=== PATIENT | male | born 1970 | race Caucasian/White ===

== ENCOUNTER 2018-12-16 10:11 | Emergency (ER) | payer MEDICARE, OTHER ==
[~2018-12-16] VITALS: Ht 170.2 cm; Wt 74.8 kg
--- OUTSIDE RECORDS SUMMARY | 2018-12-16 10:14 | XMS REPORT | Clinical Summary ---
Author Author JENIFER YmagisPower County HospitalHyperopticLevi HospitalNeuroInterventional TherapeuticsProvidence [facility] Address Unknown Phone Unavailable Care Team Providers Care Custom Motorcycle Painter Name Role Phone Sharpless PCP Hugo Rivera MD Unavailable Allergies Comments Active Allergy Reactions Severity Noted Date Codeine Nausea And 12/05/2015 Vomiting IV contrast Other Itching 12/05/2015 Medications End Date Status Medication Sig Dispensed Refills Start Date Active ascorbic acid (VITAMIN C) Take 1,000 mg 0 1000 MG tablet by mouth daily. Active calcium acetate (PHOSLO) Take 667 mg 0 667 mg capsule by mouth 3 (three) times daily with meals. Active dorzolamide-timolol 1 drop 2 0 (COSOPT) 22.3-6.8 mg/mL (two) times ophthalmic solution daily. Active epoetin flavia Inject 10,000 0 (EPOGEN,PROCRIT) 10,000 Units unit/mL injection subcutaneousl y 3 (three) times a week at bedtime MWF. Active quiNINE sulfate 324 mg Take 648 mg 0 Cap capsule by mouth 3 (three) times a week MWF. Active temazepam (RESTORIL) 22.5 Take 30 mg by 0 MG capsule mouth every night as needed for Sleep . Active travoprost (TRAVATAN Z) Place 1 drop 0 0.004 % Drop ophthalmic into both drops eyes nightly. Active omega-3 fatty Take by 0 acids-vitamin E 1,000 mg mouth. Cap Active Problems Problem Noted Date Cataract, left 04/30/2016 Chronic kidney disease (CKD), dialysis modality undecided, unspecified 04/30/2016 stage Diet-controlled diabetes mellitus 04/30/2016 Primary open angle glaucoma of both eyes, severe stage 12/06/2015 Encounters Care Team Description Date Type Specialty Montrell Deshpande MD 12/24/2017 Anesthesia Event Drew Conley MD INSERTION,EYE TUBE SHUNT W/WO GRAFT 12/24/2017 Surgery Drew Conley MD Primary open angle glaucoma of both eyes, severe stage (Primary Dx) 12/24/2017 Hospital Encounter Drew Conley MD 12/23/2017 Hospital Pre-Admission Testing Encounter after 12/15/2017 Social History Date Tobacco Use Types Packs/Day Years Used Never Smoker Smokeless Tobacco: Never Used Alcohol Use Drinks/Week oz/Week Comments No Sex Assigned at Date Recorded Not on file Industry Job Start Date Occupation Not on file Not on file Not on file Travel End Travel History Travel Start No recent travel history available. Last Filed Vital Signs Time Taken Vital Sign Reading 12/24/2017 2:43 PM JAVA PROGRAMMER Blood Pressure 84/47 12/24/2017 2:43 PM JAVA PROGRAMMER Pulse 67 12/24/2017 2:20 PM JAVA PROGRAMMER Temperature 36.7 C (98 F) 12/24/2017 2:43 PM JAVA PROGRAMMER Respiratory Rate 13 12/24/2017 2:31 PM JAVA PROGRAMMER Oxygen Saturation 95% - Inhaled Oxygen - Concentration 12/24/2017 1:12 PM JAVA PROGRAMMER Weight 77.1 kg (169 lb 15.6 oz) 12/24/2017 1:12 PM JAVA PROGRAMMER Height 170.2 cm (5' 7") 12/24/2017 1:12 PM JAVA PROGRAMMER Body Mass Index 26.62 Plan of Treatment Not on file Implants Device Identifier Shelf Expiration Date Model / Serial / Lot Implanted Type Area Manufactur er 07/26/2017 [id number] / [id number] / Brvldt Glucma Implnt 350mm [id number] IMPLANTS Right: Eye ADV MED - [id number] OPTICS Implanted: Qty: 1 on 12/06/2015 by Drew Conley MD 12/17/2019 SN60WF.225 / [id number] / Iol Acrysof Luz 6.0 13 22.5d Ophthalmol Left: Eye PAM Sn60wf.225 - [id number] ogy LAB:SURG Implanted: Qty: 1 on 04/30/2016 by Sana Shirley MD 05/18/2021 SN60WF.225 / [id number] / Iol Acrysof Luz 6.0 13 22.5d Ophthalmol Right: Eye PAM Sn60wf.225 - [id number] ogy LAB:SURG Implanted: Qty: 1 on 09/24/2016 by Sana Shirley MD 08/14/2019 [id number] / [id number] / Imp Glaucoma Baerveldt [id number] - Ophthalmol Left: Eye [employer] [id number] ogy & SERVICES Implanted: Qty: 1 on 12/24/2017 by Drew Webster MD 09/23/2019 HCO-HH1 / [id number] / Halo Cornea Half Half Strl Hco-Hh1 Tissue Left: Eye LIONS - [id number] Graft/Subs VISIONGIFT Implanted: Qty: 1 on 12/24/2017 by Drew Saldana MD 08/29/2016 / [id number] / Cornea Half Halo Half Thickness Right: Eye LIONS Graft VISIONGIFT Implanted: Qty: 1 on 12/06/2015 by Drew Conley MD Procedures Comments Procedure Name Priority Date/Time Associated Diagnosis INSERTION,EYE TUBE SHUNT 12/24/2017 H40.10X3- UNSPECIFIED W/WO GRAFT 1:35 PM JAVA PROGRAMMER OPEN ANGLE GLAUCOMA, SEVERE STAGE POCT-HEMOGLOBIN Routine 12/24/2017 1:35 PM JAVA PROGRAMMER POCT-HEMATOCRIT Routine 12/24/2017 1:35 PM JAVA PROGRAMMER POCT-GLUCOSE Routine 12/24/2017 1:35 PM JAVA PROGRAMMER POCT-CHLORIDE Routine 12/24/2017 1:35 PM JAVA PROGRAMMER POCT-BUN Routine 12/24/2017 1:35 PM JAVA PROGRAMMER POCT-POTASSIUM Routine 12/24/2017 1:35 PM JAVA PROGRAMMER POCT-SODIUM Routine 12/24/2017 1:35 PM JAVA PROGRAMMER after 12/15/2017 Results * POC-Chloride (12/24/2017 1:35 PM JAVA PROGRAMMER) [facility]-Chloride 98Comment: TESTED AT [facility] 98 - 107 meq/L [place] [id number] [place] [address] Specimen Blood Performing Organization Address City/[facility]/Zipcode Phone Number [phone] [place] [address] * POC-BUN (12/24/2017 1:35 PM JAVA PROGRAMMER) POC-BUN 51 (H)Comment: TESTED AT 7 - 21 mg/dL [address] [address] Specimen Blood Performing Organization Address City/[facility] Phone Number [address] * POCT-HEMATOCRIT (12/24/2017 1:35 PM JAVA PROGRAMMER) POC-Hematocrit 36 (L)Comment: TESTED AT 40 - 50 % [address] [address] Specimen Blood Performing Organization Address City/[facility] Cent[facility] Phone Number [phone] [place] [address] * POCT-HEMOGLOBIN (12/24/2017 1:35 PM JAVA PROGRAMMER) POC-Hemoglobin 12.2 (L)Comment: TESTED AT 13.0 - 16.8 g/dL [place] [id number] [facility] [address] Specimen Blood Performing Organization Address City/[facility] Centercode Phone Number [phone] [place] [address] * POCT-GLUCOSE (12/24/2017 1:35 PM JAVA PROGRAMMER) POC-Glucose 79Comment: TESTED AT [facility] 70 - 110 mg/dL [address] [place] [address] Specimen Blood Performing Organization Address City/[facility]/Zipcode Phone Number [address] * POC-Sodium (12/24/2017 1:35 PM JAVA PROGRAMMER) POC-Sodium 140Comment: TESTED AT 135 - 148 meq/L [facility] [address] [facility] [address] Specimen Blood Performing Organization Address City/State/[facility] Centercode Phone Number [facility] [address] [place] [address] [phone] [place] [address] * POC-Potassium (12/24/2017 1:35 PM JAVA PROGRAMMER) POC-Potassium 5.2Comment: TESTED AT 3.6 - 5.5 meq/L [facility] [address] [facility] [address] Specimen Blood Performing Organization Address City/[facility] Centercode Phone Number [facility] [address] [place] [address] [phone] [place] [address] after 12/15/2017 Insurance Payer Benefit Subscriber ID Type Phone Address Plan / Group MEDICARE MEDICARE A xxxxxxxxxx Medicare B MEDICARE MEDICARE A xxxxxxxxxx Medicare B AETNA - MGD CARE AETNA HMO xxxxxxxxxx HMO/POS POS QPOS AETNA - [place]GD CARE AETNA HMO xxxxxxxxxx HMO/POS POS QPOS
--- OUTSIDE RECORDS SUMMARY | 2018-12-16 10:14 | XMS REPORT ---
Author Author [facility] Address Unknown Phone Unavailable Care Team Providers Care Auto Bench Mechanic Name Role Phone Terri GONZALEZ Unavailable Unavailable Problems This patient has no known problems. Allergies, Adverse Reactions, Alerts This patient has no known allergies or adverse reactions. Medications This patient has no known medications. Results Test Description Test Time Test Comments Text Results Atomic Results Result Comments POCT-SODIUM 2017-12-24 13:41:00 POC-SODIUM (BEAKER) (test enfj=0912) 140 meq/L 135-148 TESTED AT [place] [address] [id number] 13:41:00* Test Item Value Reference Range Comments POC-POTASSIUM (BEAKER) (test evbl=9576) 5.2 meq/L 3.6-5.5 TESTED AT [place] [address] [id number] 13:41:00* Test Item Value Reference Range Comments POC-BUN (BEAKER) (test xplq=0951) 51 mg/dL 7-21 TESTED AT [place] [address] [id number] 13:41:00* Test Item Value Reference Range Comments POC-CHLORIDE (BEAKER) (test jurg=8382) 98 meq/L 98-107 TESTED AT [place] [id number] [id number] 13:41:00* Test Item Value Reference Range Comments POC-GLUCOSE (BEAKER) (test qxrq=9771) 79 mg/dL 70-110 TESTED AT [place] [address] [id number] 13:41:00* Test Item Value Reference Range Comments POC-HEMATOCRIT (BEAKER) (test jbpy=8311) 36 % 40-50 TESTED AT [place] [id number] 13:41:00* Test Item Value Reference Range Comments POC-HEMOGLOBIN ([place]) (test gltn=0456) 12.2 g/dL 13.0-16.8 TESTED AT [facility]- [address] [address]
--- OUTSIDE RECORDS SUMMARY | 2018-12-16 10:14 | XMS REPORT ---
Author Melo Fairchild [facility] eClinicalWorks Address Unknown Phone Unavailable Care Team Providers Care Director Of Human Resources Name Role Phone Melo Santo CP Unavailable Allergies No Known Allergies Problems Problem Type Condition Code Onset Dates Condition Status Problem End stage renal disease N18.6 Active Medications No Known Medications Results No Known Results Summary Purpose eClinicalWorks Submission
--- OUTSIDE RECORDS SUMMARY | 2018-12-16 10:14 | XMS REPORT | Continuity of Care Document ---
Author Author Libia caceres Organization Interface Address Unknown Phone Unavailable Problems Problem Status Onset Date Classification Date Reported Comments Source LEFT FOOT PAIN Active 11/21/2017 [facility] End stage renal disease Active Problem 01/23/2017 [facility] Medications Medication Details Route Status Patient Instructions Ordering Provider Order Date Source Allergies, Adverse Reactions, Alerts Substance Category Reaction Severity Reaction type Status Date Reported Comments Source Immunizations Immunization Date Given Site Status Last Updated Comments Source Results Order Name Results Value Reference Range Date Interpretation Comments Source Foot 2 views DX Foot 2 views DX Clinical Indication: - tripped. c/o top of foot pain. Comparison: None. FINDINGS: AP and lateralviews of the left foot show normal alignment without fractures or dislocations. The joints appear unremarkable. There is no soft tissue swelling or radiopaque foreign bodies. There is no soft tissue gas or osseous erosive changes noted. The bones appear demineralized particularly the MTP joints and phalanges. Vascular calcifications are noted. IMPRESSION: 1. Suspect demineralization. 2. No acute fracture or dislocation of the left foot. AMELIA: TJANDREA 11/21/2017 - - Read by: Zhanna Elise MD Dictated Date/time: 11/21/17 10:58 Electronically Signed by: Zhanna Elise MD 11/21/17 11:[address] [facility] Vital Signs Vital Sign Value Date Comments Source Encounters Location Location Details Encounter Type Encounter Number Reason For Visit Attending Provider ADM Date DC Date Status Source Procedures Procedure Code Date Perfomer Comments Source
--- OUTSIDE RECORDS SUMMARY | 2018-12-16 10:14 | XMS REPORT | Clinical Summary ---
Author Author [facility] Organization [facility] Address Unknown Phone Unavailable Care Team Providers Care Tape Keller Operator Name Role Phone Hugo Rivera MD PCP Allergies Comments Active Allergy Reactions Severity Noted Date Codeine 09/28/2015 IV contrast Other Itching 12/05/2015 Medications End Date Status Medication Sig Dispensed Refills Start Date Active temazepam (RESTORIL) 30 TAKE 2-3 1 mg capsule CAPSULES BY 8 MOUTH AT BEDTIME Active dorzolamide-timolol INSTILL 1 6 (COSOPT) 22.3-6.8 mg/mL DROP INTO 8 ophthalmic solution BOTH EYES TWICE A DAY Active prednisoLONE acetate PLACE 1 DROP 2 (PRED FORTE) 1 % INTO THE LEFT 8 ophthalmic suspension EYE FOUR TIMES DAILY. SHAKE WELL BEFORE EACH USE Active gatifloxacin (ZYMAXID) PLACE 1 DROP 0 0.5 % drops INTO THE LEFT 8 EYE 3 TIMES DAILY. Active quiNINE (QUALAQUIN) 324 Take by 0 MG capsule mouth. Active epoetin flavia Infuse 10,000 0 (EPOGEN,PROCRIT) 10,000 Units into a unit/mL injection venous catheter. Active calcium acetate (PHOSLO) Take 1 tablet 0 667 mg tablet by mouth. Active ascorbic acid, vitamin C, Take by 0 (VITAMIN C) 1000 MG mouth. tablet Active aspirin (ECOTRIN) 81 MG Take 81 mg by 0 enteric coated tablet mouth daily. Active cyanocobalamin (VITAMIN Take 500 mcg 0 B-12) 500 MCG tablet by mouth daily. Active acetaminophen (TYLENOL) Take 325 mg 0 325 MG tablet by mouth every 6 (six) hours as needed for fever. Active latanoprost (XALATAN) 1 drop 0 0.005 % ophthalmic nightly. solution Active cycloSPORINE (RESTASIS) 1 drop 2 0 0.05 % ophthalmic (two) times a emulsion day. Active omega-3/dha/epa/fish oil Take 1,200 mg 0 (FISH OIL HIGH POTENCY by mouth. ORAL) 04/27/2018 traMADol (ULTRAM) 50 mg Take 1 tablet 40 tablet 0 tablet (50 mg total) 8 by mouth every 6 (six) hours as needed for moderate pain for up to 25 days. Active Problems Problem Noted Date Other complication due to venous access device 02/25/2018 Overview: Added automatically from request for surgery [id number] Glaucoma 02/01/2018 ESRD (end stage renal disease) , transplant [id number], MWF 02/01/2018 Last Assessment & Plan: N. Duplex reviewed by me suggests a volume flow of 1.3 L/min with some venous stenosis. Plan for RLE graft revision with 23 hour hospital observation in 03/2018. We discussed operative complications including bleeding, thrombosis, failure of the access, swelling, steal syndrome, and need for additional procedures. Plan to begin enteric coated ASA QD. Peptic ulcer disease 02/01/2018 Encounters Care Team Description Date Type Specialty Damien Andrade, EMIL ESRD (end stage renal disease) , transplant , MW (Primary Dx) 04/27/2018 Office Visit Cardiovascular Hugo Rivera MD 04/02/2018 Documentation Nephrology Tanja Garvin MD 04/01/2018 Anesthesia Vascular Surgery Event Yvette Roberto MD REVISION OF RIGHT LEG AV GRAFT acuseal 04/01/2018 Surgery Vascular Surgery Yvette Roberto MD Other complication due to venous access device, initial encounter 04/01/2018 [facility] General Internal Medicine - Encounter 04/02/2018 Yvette Roberto MD ESRD (end stage renal disease) 04/01/2018 Hospital Radiology Encounter Yvette Roberto MD ESRD (end stage renal disease) 04/01/2018 Hospital Radiology Encounter Yusra Jesus 02/25/2018 Telephone Cardiovascular Yusra Jesus Other complication due to venous access device, initial encounter (Primary Dx) 02/22/2018 Prep for Cardiovascular Surgery Yvette Roberto MD ESRD (end stage renal disease) , transplant 1992, MW (Primary Dx) 02/01/2018 Office Visit Cardiovascular Yvette Roberto MD End stage renal disease (Primary Dx) 12/28/2017 Orders Only Cardiovascular after 12/15/2017 Social History Date Tobacco Use [...] Vital Signs Time Taken Vital Sign Reading 04/27/2018 10:09 AM CDT Blood Pressure 97/54 04/27/2018 10:09 AM CDT Pulse 77 04/27/2018 10:09 AM CDT Temperature 37.1 C (98.8 F) 04/27/2018 10:09 AM CDT Respiratory Rate 17 04/02/2018 12:33 PM CDT Oxygen Saturation 99% - Inhaled Oxygen - Concentration 04/27/2018 10:09 AM CDT Weight 77.1 kg (170 lb) 04/27/2018 10:09 AM CDT Height 170.2 cm (5' 7") 04/27/2018 10:09 AM CDT Body Mass Index 26.63 Plan of Treatment Health Maintenance Due Date Last Done Comments INFLUENZA VACCINE 05/19/2018 Implants Device Identifier Shelf Expiration Date Model / Serial / Lot Implanted Type Area Manufactur er 02/17/2021 [id number] / [id number] / [id number] 6mm X 50 Cm Flixene Graft W/Gds - IPM GRAFTS Right: Thigh [employer] [id number] MEDICAL Implanted: 04/01/2018 (Quantity not NELSON on file) 06/28/2022 [id number] / / [id number] Clip Ligtng Weck Hemoclip Plus W/ Medical Right: Thigh WECK Tape Ti Sm - [id number] Clips for CLOSURE Implanted: Qty: 1 on 04/01/2018 by Internal SYSTEMS Yvette Roberto MD Use 10/26/2022 [id number] / / [id number] Clip Ligtng Weck Hemoclip Plus W/ Medical N/A: N/A TELEFLEX Tape Ti Lg - [id number] Clips for MEDICAL Implanted: Qty: 1 on 04/01/2018 by Internal Yvette Roberto MD Use [id number] / / Catheter Thrmbtmy Brionna 5fr 50cm Surgical N/A: N/A [facility] - [id number] Implants; LIFESCIENC Implanted: 04/01/2018 (Quantity not Expanders; ES on file) Extenders; Surgical Wires Procedures Comments Procedure Name Priority Date/Time Associated Diagnosis ZZESTIMATED GFR Routine 04/02/2018 8:31 AM CDT HEPATITIS B SURFACE Routine 04/02/2018 ANTIGEN 8:31 AM CDT BASIC METABOLIC PANEL Routine 04/02/2018 8:31 AM CDT HC COMPLETE BLD COUNT Routine 04/02/2018 W/AUTO DIFF 8:31 AM CDT HEMODIALYSIS Routine 04/02/2018 8:30 AM CDT OR [place] > 1 HOUR Routine 04/01/2018 ESRD (end stage renal 3:40 PM CDT disease) [place] AN ELECTIVE Routine 04/01/2018 SUPRAGLOTTIC AIRWAY 1:18 PM CDT Procedure Note - Glen Juárez CRNA - 04/01/2018 1:18 PM CDT Airway Performed by: GLEN JUÁREZ Authorized by: CARLY LOWE Location: OR Urgency: Elective Difficult Airway: No Anesthesio logist: CARLY LOWE Resident/C RNA/AA: GLEN JUÁREZ Performed by: resident/C RNA/AA Preoxygena rebecca with 100% O2: Yes C-spine Precaution s Maintained Throughout : Yes Mask Ventilatio n: Easy mask Final Airway Type: Supraglott ic airway Final LMA: Classic LMA Size: 5 Number of Attempts at Approach: 1 REVISION, ARTERIOVENOUS 04/01/2018 Other complication due to GRAFT, WITH ANGIOGRAPHY 12:35 PM CDT venous access device, initial encounter Case Notes POSSIBLE EXTENDED RECOVERY NEEDED Special Needs POSSIBLE EXTENDED RECOVERY NEEDED XR CHEST 1 VW PORTABLE STAT 04/01/2018 ESRD (end stage renal 10:50 AM CDT disease) ECG 12-LEAD Routine 04/01/2018 10:49 AM CDT GLUCOSE LEVEL, SYRINGE STAT 04/01/2018 10:45 AM CDT SODIUM LEVEL, SYRINGE STAT 04/01/2018 10:45 AM CDT POTASSIUM, SYRINGE STAT 04/01/2018 10:45 AM CDT HEMOGLOBIN, SYRINGE STAT 04/01/2018 10:45 AM CDT US DUPLEX HEMODIALYSIS Routine 02/01/2018 End stage renal disease AVG AVF ACCESS 11:05 AM CDT after 12/15/2017 Results * Estimated GFR (04/02/2018 8:31 AM CDT) GFR Non Af Amer 7 (A) mL/min/1.73 m2 [facility] DEPARTMENT OF PATHOLOGY AND GENOMIC MEDICINE GFR Af Amer 8 (A) mL/min/1.73 m2 [facility] DEPARTMENT OF Comment: PATHOLOGY AND Chronic kidney disease: <60 GENOMIC MEDICINE mL/min/1.73m2 Kidney failure: <15 mL/min/1.73m2 The estimated GFR is calculated from the IDMS-traceable Modification of Diet in Renal Disease Equation. The accuracy of the calculation is poor when the creatinine is normal. Calculated values >90 mL/min/1.73m2 are not reported. This equation has not been validated in children (<18 years), women, the elderly (>70 years), or ethnic groups other than Caucasians and Americans. Specimen Plasma specimen Performing Organization Address City/State/[place] [address] PATHOLOGY AND [employer] * Hepatitis B surface antigen (04/02/2018 8:31 AM CDT) Hepatitis B surface Ag Non-reactive Non-reactive [facility] DEPARTMENT OF PATHOLOGY AND GENOMIC MEDICINE Specimen Blood Performing Organization Address City/State/[place] [address] PATHOLOGY AND [facility]IC[facility] * CBC with platelet and differential (04/02/2018 8:31 AM CDT) WBC 7.77 4.50 - 11.00 k/uL [facility] DEPARTMENT OF PATHOLOGY AND GENOMIC MEDICINE RBC 3.09 (L) 4.40 - 6.00 m/uL [facility] DEPARTMENT OF PATHOLOGY AND GENOMIC MEDICINE HGB 9.4 (L) 14.0 - 18.0 g/dL [facility] DEPARTMENT OF PATHOLOGY AND GENOMIC MEDICINE HCT 30.0 (L) 41.0 - 51.0 % [facility] DEPARTMENT OF PATHOLOGY AND GENOMIC MEDICINE MCV 97.1 82.0 - 100.0 fL [facility] DEPARTMENT OF PATHOLOGY AND GENOMIC MEDICINE MCH 30.4 27.0 - 34.0 pg [facility] DEPARTMENT OF PATHOLOGY AND GENOMIC MEDICINE MCHC 31.3 31.0 - 37.0 g/dL [facility] DEPARTMENT OF PATHOLOGY AND GENOMIC MEDICINE RDW - SD 48.3 37.0 - 55.0 fL [facility] DEPARTMENT OF PATHOLOGY AND GENOMIC MEDICINE MPV 9.6 8.8 - 13.2 fL [facility] DEPARTMENT OF PATHOLOGY AND GENOMIC MEDICINE Platelet count 249 150 - 400 k/uL [facility] DEPARTMENT OF PATHOLOGY AND GENOMIC MEDICINE Nucleated RBC 0.00 /100 WBC [facility] DEPARTMENT OF PATHOLOGY AND GENOMIC MEDICINE Neutrophils 59.0 39.0 - 69.0 % [facility] DEPARTMENT OF PATHOLOGY AND GENOMIC MEDICINE Lymphocytes 23.4 (L) 25.0 - 45.0 % [facility] DEPARTMENT OF PATHOLOGY AND GENOMIC MEDICINE Monocytes 10.6 (H) 0.0 - 10.0 % [facility] DEPARTMENT OF PATHOLOGY AND GENOMIC MEDICINE Eosinophils 5.8 (H) 0.0 - 5.0 % [facility] DEPARTMENT OF PATHOLOGY AND GENOMIC MEDICINE Basophils 0.9 0.0 - 1.0 % [facility] DEPARTMENT OF PATHOLOGY AND GENOMIC MEDICINE Immature granulocytes 0.3Comment: "Immature 0.0 - 1.0 % [facility] DEPARTMENT OF granulocytes" (promyelocytes, PATHOLOGY AND myelocytes, metamyelocytes) GENOMIC MEDICINE Specimen Blood Performing Organization Address City/State/Zipcode Phone Number [facility] DEPARTMENT OF [address] [place] [address] PATHOLOGY AND GENOMIC MEDICINE * Basic metabolic panel (04/02/2018 8:31 AM CDT) Sodium 140 135 - 148 mEq/L [facility] DEPARTMENT OF PATHOLOGY AND GENOMIC MEDICINE Potassium 4.7 3.5 - 5.0 mEq/L [facility] DEPARTMENT OF PATHOLOGY AND GENOMIC MEDICINE Chloride 95 (L) 98 - 112 mEq/L [facility] DEPARTMENT OF PATHOLOGY AND GENOMIC MEDICINE CO2 23 (L) 24 - 31 mEq/L [facility] DEPARTMENT OF PATHOLOGY AND GENOMIC MEDICINE Anion gap 22@ANIO (H) 7 - 15 mEq/L [facility] DEPARTMENT OF PATHOLOGY AND GENOMIC MEDICINE BUN 61 (H) 6 - 20 mg/dL [facility] DEPARTMENT OF PATHOLOGY AND GENOMIC MEDICINE Creatinine 8.7 (H) 0.7 - 1.2 mg/dL [facility] DEPARTMENT OF PATHOLOGY AND GENOMIC MEDICINE Glucose 90 65 - 99 mg/dL [facility] DEPARTMENT OF PATHOLOGY AND GENOMIC MEDICINE Calcium 7.8 (L) 8.3 - 10.2 mg/dL [facility] DEPARTMENT OF PATHOLOGY AND GENOMIC MEDICINE Specimen Plasma specimen Performing Organization Address City/State/Zipcode Phone Number [facility] DEPARTMENT OF [address] [place] [address] PATHOLOGY AND GENOMIC MEDICINE * OR [place] > I Hour (04/01/2018 3:40 PM CDT) Narrative Performed At EXAM: [facility] Intraoperative fluoroscopy. INDICATION: Fistulogram. COMPARISON: None. IMPRESSION: Intraoperative fluoroscopic images. Radiologist was not present during the examination. Please see separate operative report for additional detail. Fluoroscopy time equals 126.7 seconds. 263 image(s). Procedure Note Interface, Radiology Results Incoming - 04/01/2018 6:22 PM CDT EXAM: Intraoperative fluoroscopy. INDICATION: Fistulogram. COMPARISON: None. IMPRESSION: Intraoperative fluoroscopic images. Radiologist was not present during the examination. Please see separate operative report for additional detail. Fluoroscopy time equals 126.7 seconds. 263 image(s). Performing Organization Address [facility] [employer] Phone Number [facility] [address] [place] [address] * XR Chest 1 Vw Portable (04/01/2018 10:50 AM CDT) Narrative Performed At EXAMINATION:XR CHEST 1 VW PORTABLE [facility] CLINICAL HISTORY:N18.6 End stage renal disease, Pre-op COMPARISON:January 21, 2012 IMPRESSION: No acute abnormalities single view chest. No change compared to previous The lungs are clear. Calcific pleural plaquing over each apex unchanged The heart is not enlarged. The bony structures are within normal limits. [id number] Procedure Note Interface, Radiology Results Incoming - 04/01/2018 11:06 AM CDT EXAMINATION: XR CHEST 1 VW PORTABLE CLINICAL HISTORY: N18.6 End stage renal disease, Pre-op COMPARISON: January 21, 2012 IMPRESSION: No acute abnormalities single view chest. No change compared to previous The lungs are clear. Calcific pleural plaquing over each apex unchanged The heart is not enlarged. The bony structures are within normal limits. [id number] Performing Organization Address City/[facility]/[place] [address] * ECG 12 lead (04/01/2018 10:49 AM CDT) Ventricular rate 71 [facility] MUSE Atrial rate 71 [facility] MUSE [place] interval 154 [facility] MUSE QRSD interval 78 HM MUSE QT interval 430 [facility] MUSE QTC interval 467 [facility] MUSE P axis 1 46 HM MUSE QRS axis 1 50 [facility] MUSE T wave axis 73 [facility] MUSE EKG impression Sinus rhythm with premature [facility] MUSE atrial complexes with aberrant conduction-Otherwise normal ECG-In automated comparison with ECG of 21-JAN-2012 12:01,-aberrant conduction is now present- Performing Organization Address City/[facility] Centercode [place] [address] * Sodium level, syringe (04/01/2018 10:45 AM CDT) Sodium, syringe 140 135 - 148 mEq/L [facility] DEPARTMENT OF PATHOLOGY AND GENOMIC MEDICINE Specimen Blood Performing Organization Address City/[facility] [place] [address] PATHOLOGY AND GENOMIC MEDICINE * Potassium, syringe (04/01/2018 10:45 AM CDT) Potassium, syringe 5.4 (H) 3.5 - 5.0 mEq/L [facility] DEPARTMENT OF PATHOLOGY AND GENOMIC MEDICINE Specimen Blood Performing Organization Address City/[facility] [place] [address] PATHOLOGY AND GENOMIC MEDICINE * Hemoglobin, syringe (04/01/2018 10:45 AM CDT) Hemoglobin, syringe 11.7 (L) 14.0 - 18.0 g/dL [facility] DEPARTMENT OF PATHOLOGY AND GENOMIC MEDICINE Specimen Blood Performing Organization Address City/[facility]/Zipcode Phone Number [facility] [place] [address] PATHOLOGY AND GENOMIC MEDICINE * Glucose level, syringe (04/01/2018 10:45 AM CDT) Glucose, syringe 86 65 - 99 mg/dL [facility] DEPARTMENT OF PATHOLOGY AND GENOMIC MEDICINE Specimen Blood Performing Organization Address City/[facility] [place] [address] PATHOLOGY AND GENOMIC MEDICINE * PV duplex hemodialysis avg avf access (02/01/2018 11:05 AM CDT) Narrative Performed At [id number] AV Graft - Fistula Report [address] [place], [place] Pat.Name:YAZAN VIDAL Pat.ID:[id number] .Date: 02/01/2018 Refer.MD:YVETTE ROBERTO MD Exam Time: 10:38:00 AM Study Type:AV Graft - Fistula DOBAge:1970,47Y Sex: MALE Sonogrphr: Komalnorth Randall, RVTTapeVol: KF, CPT - 4: 02856 Echo Event ID:[id number] Order ID:[id number] Reason for Study:Pateint states that he is having low clearance during dialysis and running out of places to stick for dialysis.ESRD. SUMMARY: DUPLEX SCAN OBSERVATIONS: RIGHT:The common femoral artery to femoral vein thigh AVG is well visualized.Disturbed colorflow and Doppler signals are noted in the feeding common femoral artery, through the graft and into the draining vein.Increased colorflow disturbance is noted in the venous AVG anastomosis.No increased colorflow disturbance is noted within the graft or the graft draining vein. VOLUME FLOW: Right Common femoral artery 1329 ml/min Previous 02/24/20121321 ml/min Patient seen in clinic today by Dr. Roberto. PHYSICIAN INTERPRETATION: 1.Volume flow, right common femoral artery is 1329 ml/min 2.< 50% stenosis, right common femoral artery to femoral vein AVG involving the arterial anastomosis (ratio 1.5) 3.> 50% stenosis, right common femoral artery to femoral vein AVG involving the venous anastomosis (ratio 3.3) MEASUREMENTS: DOPPLER AVG ART SIDE 1 Right AVG ART S 127 cm/s LEVELER HELPER Mid Right LEVELER HELPER Mid P 159 cm/s AVG ART SIDE 2 Right AVG ART S 138 cm/s GRAFT Right AVG Pre AAnastomosis Common Femoral Artery to Common Femoral Vein:Graft AVG Pre [id number] cm/s Right AVG Vein Side 1 Common Femoral Artery to Common Femoral Vein:Graft AVG Vn Side 1 P 204 cm/s Right AVG Vein Anastomosis Common Femoral Artery to Common Femoral Vein:Graft AVG Vn Anast PS 577 cm/s Right AVG Vein Outflow Common Femoral Artery to Common Femoral Vein:Graft AVG Vn [id number] cm/s Right AVG Mid Common Femoral Artery to Common Femoral Vein:Graft AVG Mid [id number] cm/s Right AVG Arterial Side Common Femoral Artery to Common Femoral Vein:Graft AVG ASide [id number] cm/s Right AVG Vein Side 2 Common Femoral Artery to Common Femoral Vein:Graft AVG Vn Side 2 P 173 cm/s Right AVG Vein Side Common Femoral Artery to Common Femoral Vein:Graft AVG Vn Side PSV 126 cm/s Right AVG Arterial Anastomosis Common Femoral Artery to Common Femoral Vein:Graft AVG AAnast PSV 281 cm/s Right LEVELER HELPER Common Femoral Artery to Common Femoral Vein:Graft LEVELER HELPER [id number] cm/s Right AVG Arterial Side 1 Common Femoral Artery to Common Femoral Vein:Graft AVG ASide 1 PSV 127 cm/s Right AVG Arterial Side 2 Common Femoral Artery to Common Femoral Vein:Graft AVG ASide 2 PSV 138 cm/s Right CFV Common Femoral Artery to Common Femoral Vein:Graft CFV PSV 79 cm/s Signed 02/02/2018 02:32 AM Christiano Silva MD, RPVI Procedure Note Interface, Radiology Results In - 02/02/2018 2:33 AM CDT [facility] AV Graft - Fistula Report [address] [place] [address] Pat.Name: YAZAN VIDAL Pat.ID: [id number] .Date: 02/01/2018 Refer.MD: YVETTE RBOERTO MD Exam Time: 10:38:00 AM Study Type:AV Graft - Fistula Age: 6 1970,47Y Sex: MALE Sonogrphr: Komal Randall RVObed Tape Vol: KF, CPT - 4: 86267 Echo Event ID:[id number] Order ID: [id number] Reason for Study:Pateint states that he is having low clearance during dialysis and running out of places to stick for dialysis. ESRD. SUMMARY: DUPLEX SCAN OBSERVATIONS: RIGHT: The common femoral artery to femoral vein thigh AVG is well visualized. Disturbed colorflow and Doppler signals are noted in the feeding common femoral artery, through the graft and into the draining vein. Increased colorflow disturbance is noted in the venous AVG anastomosis. No increased colorflow disturbance is noted within the graft or the graft draining vein. VOLUME FLOW: Right Common femoral artery 1329 ml/min Previous 02/24/2012 1321 ml/min Patient seen in clinic today by Dr. Roberto. PHYSICIAN INTERPRETATION: 1. Volume flow, right common femoral artery is 1329 ml/min 2. < 50% stenosis, right common femoral artery to femoral vein AVG involving the arterial anastomosis (ratio 1.5) 3. > 50% stenosis, right common femoral artery to femoral vein AVG involving the venous anastomosis (ratio 3.3) MEASUREMENTS: DOPPLER AVG ART SIDE 1 Right AVG ART S 127 cm/s LEVELER HELPER Mid Right LEVELER HELPER Mid P 159 cm/s AVG ART SIDE 2 Right AVG ART S 138 cm/s GRAFT Right AVG Pre AAnastomosis Common Femoral Artery to Common Femoral Vein:Graft AVG Pre AAnast 193 cm/s Right AVG Vein Side 1 Common Femoral Artery to Common Femoral Vein:Graft AVG Vn Side 1 P 204 cm/s Right AVG Vein Anastomosis Common Femoral Artery to Common Femoral Vein:Graft AVG Vn Anast PS 577 cm/s Right AVG Vein Outflow Common Femoral Artery to Common Femoral Vein:Graft AVG Vn Outflow 134 cm/s Right AVG Mid Common Femoral Artery to Common Femoral Vein:Graft AVG Mid PSV 114 cm/s Right AVG Arterial Side Common Femoral Artery to Common Femoral Vein:Graft AVG ASide PSV 180 cm/s Right AVG Vein Side 2 Common Femoral Artery to Common Femoral Vein:Graft AVG Vn Side 2 P 173 cm/s Right AVG Vein Side Common Femoral Artery to Common Femoral Vein:Graft AVG Vn Side PSV 126 cm/s Right AVG Arterial Anastomosis Common Femoral Artery to Common Femoral Vein:Graft AVG AAnast PSV 281 cm/s Right LEVELER HELPER Common Femoral Artery to Common Femoral Vein:Graft LEVELER HELPER PSV 159 cm/s Right AVG Arterial Side 1 Common Femoral Artery to Common Femoral Vein:Graft AVG ASide 1 PSV 127 cm/s Right AVG Arterial Side 2 Common Femoral Artery to Common Femoral Vein:Graft AVG ASide 2 PSV 138 cm/s Right CFV Common Femoral Artery to Common Femoral Vein:Graft CFV PSV 79 cm/s Signed 02/02/2018 02:32 AM Christiano Silva MD, RPVI Performing Organization Address City/State/Zipcode Phone Number [facility] [address] [place] [address] after 12/15/2017 Insurance Payer Benefit Subscriber ID Type Phone Address Plan / Group MEDICARE MEDICARE xxxxxxxxxx Medicare [place], [place] PART A AND B AETNA AETNA xxxxxxxxxx HMO HMO,POS,EP O, MC/EC Advance Directives Patient has advance care planning documents on file. For more information, da yip contact: Curt Vora [address] [place] [address]
--- NOTE | 2018-12-16 10:37 | NUR ---
went into patient's room to draw labs, however pt. refused blood draw, states we can call [facility] because they do labs every time
--- NOTE | 2018-12-16 12:17 | Diagnostic Imaging Report ---
EXAM: Right Lower Extremity Duplex Ultrasound INDICATION: Right leg pain, has dialysis graft in right leg. COMPARISON: None TECHNIQUE: Barrera scale, color Doppler and spectral waveform analysis of the right lower extremity deep venous system was performed. FINDINGS: Common Femoral: Fully compressible with normal spontaneous waveforms. Proximal Greater Saphenous: Fully compressible. Femoral: Fully compressible with normal spontaneous waveforms. Normal response to augmentation. Popliteal: Fully compressible with normal spontaneous waveforms. Calf veins: The anterior tibial and posterior tibial veins are unremarkable. IMPRESSION: No evidence of deep venous thrombosis in the right lower extremity. Signed by: Dr. Risa Hawk MD on 12/16/2018 12:14 PM
[2018-12-16 12:33] VITALS: BP 99/64
== END 2018-12-16 12:36 | disposition home or self-care (01) ==
LOC: FSED 10:11
DX: M79.661 Pain in right lower leg (principal); R20.0 Anesthesia of skin
CPT/HCPCS: 93971; 99283